=== PATIENT | female | born 1935 | race Caucasian/White ===

== ENCOUNTER 2017-02-22 11:28 | Emergency (ER) | payer MEDICARE, BC ==
--- NOTE | 2017-02-22 12:03 | UC ---
Upper Extremity HPI - HPI Summary HPI Summary: 81 year old female presents with left thumb pain with no trauma. - History of Current Complaint Stated Complaint: LEFT HAND COMPLAINT Time Seen by Provider: 02/22/17 12:02 Hx Obtained From: Patient Hx Last Menstrual Period: n/a Onset/Duration: Sudden Onset Severity Initially: Moderate Severity Currently: Moderate Pain Scale Used: 0-10 Numeric - 5 - Allergies/Home Medications Allergies/Adverse Reactions: Allergies Allergy/AdvReac Type Severity Reaction Status Date / Time Diphenhydramine Allergy Hives Verified 10/28/15 13:47 [From Benadryl] Sulfa Antibiotics Allergy Hives Verified 10/28/15 13:47 Tetracycline Allergy Unknown Verified 10/28/15 13:47 Reaction Details Home Medications: Home Medications Solifenacin(NF) [Vesicare(NF)] 5 mg PO DAILY 02/22/17 [History Confirmed ] PMH/Surg Hx/FS Hx/Imm Hx Previously Healthy: Yes - Surgical History Surgical History: Yes Surgery Procedure, Year, and Place: tonsils 1939 - Family History Known Family History: Positive: Other - denies [facility] of knee pain or joint disorders - Social History Alcohol Use: None Substance Use Type: None Smoking Status (MU): Former Smoker When Did the Patient Quit Smoking/Using Tobacco: 58 years ago Review of Systems Constitutional: Negative Skin: Negative Eyes: Negative ENT: Negative Respiratory: Negative Cardiovascular: Negative Gastrointestinal: Negative Genitourinary: Negative Motor: Negative Neurovascular: Negative Musculoskeletal: Negative Neurological: Negative Psychological: Negative All Other Systems Reviewed And Are Negative: Yes Physical Exam Triage Information Reviewed: Yes Vital Signs Reviewed: Yes Eye Exam: Normal ENT Exam: Normal Dental Exam: Normal Neck exam: Normal Neck: Positive: 1 Respiratory Exam: Normal Cardiovascular Exam: Normal Abdominal Exam: Normal Musculoskeletal: Positive: Other: - right thumb pain Neurological Exam: Normal Psychological Exam: Normal Skin Exam: Normal Upper Extremity Course/Dx - Differential Dx/Diagnosis Provider Diagnoses: right thumb pain. rheumatoid arthritis Discharge - Discharge Plan Condition: Stable Disposition: HOME Prescriptions: Methylprednisolone [Medrol Dosepak 4 MG*] 4 mg PO .SEE JERE [employer]STRUCTION #21 tab Patient Education Materials: Rheumatoid Arthritis (ED), Hand Sprain (ED) Referrals: Harpreet Doshi MD [Medical Doctor] - Tao Mckay MD [Primary Care Provider] - Additional Instructions: LIGAMENT TEAR SCAPHOID/LUNATE
[2017-02-22 12:08] VITALS: BP 145/78
--- NOTE | 2017-02-22 12:45 | RAD ---
INDICATION: LEFT hand pain. COMPARISON: No relevant prior exams available on the [facility] for comparison. TECHNIQUE: AP, lateral, and oblique views LEFT hand. REPORT: Bone density appears decreased throughout. Negative for fracture. Osteophytosis, severe joint space narrowing, and mild radial subluxation at the third distal interphalangeal joint. Mild osteophytosis, flattening of the articular surfaces, and joint space narrowing at the basal joint of the thumb. Associated radial subluxation of the base of the first metacarpal relative to the trapezium. Scapholunate interval diastases most consistent with tear of the scapholunate ligament. Mild soft tissue swelling at the second and third fingers. IMPRESSION: 1. 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 2. 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
== END 2017-02-22 13:03 | disposition home or self-care (01) ==
LOC: UCCORT 11:28
DX: M25.541 Pain in joints of right hand (principal); M06.9 Rheumatoid arthritis, unspecified
CPT/HCPCS: 99213; G0463

== ENCOUNTER 2017-05-18 16:12 | Emergency (ER) | payer MEDICARE, BC ==
--- NOTE | 2017-05-18 16:21 | UC ---
FLU HPI - HPI Summary HPI Summary: Patient currently has nasal congestion-she has had no fevers and she did get a flu vaccine this year---her has the flu she is going to be tested for flu and then be treated with the correct regime of tamiflu - History of Current Complaint Chief Complaint: UCRespiratory Stated Complaint: Exposed to Influenza Time Seen by Provider: 05/18/17 16:15 Hx Obtained From: Patient Hx Last Menstrual Period: n/a ?: No Severity Currently: Mild Severity Initially: Mild Associated Signs & Symptoms: Positive: Nasal Congestion Related Hx: Possible Flu/Infectious Exposure - Allergy/Home Medications Allergies/Adverse Reactions: Allergies Allergy/AdvReac Type Severity Reaction Status Date / Time diphenhydramine Allergy Intermediate Hives Verified 05/18/17 16:29 [From Benadryl] Sulfa (Sulfonamide Allergy Intermediate Hives Verified 05/18/17 16:29 Antibiotics) Tetracyclines Allergy Unknown pt unsure Verified 05/18/17 16:29 of reaction PMH/Surg Hx/FS Hx/Imm Hx Previously Healthy: No Endocrine History: Hypothyroidism, Dyslipidemia Cardiovascular History: Hypertension GI/ History: Gastroesophageal Reflux - Surgical History Surgical History: Yes Surgery Procedure, Year, and Place: tonsils 1940 - Family History Known Family History: Positive: Other - denies [facility] of knee pain or joint disorders - Social History Occupation: Retired Lives: With Family Alcohol Use: None Substance Use Type: None Smoking Status (MU): Former Smoker When Did the Patient Quit Smoking/Using Tobacco: 58 years ago - Immunization History Most Recent Influenza Vaccination: [id number] Review of Systems Constitutional: Negative Skin: Negative Eyes: Negative ENT: Nasal Discharge Respiratory: Negative Cardiovascular: Negative Gastrointestinal: Negative Genitourinary: Negative Motor: Negative Neurovascular: Negative Musculoskeletal: Negative Neurological: Negative Psychological: Negative Is Patient Immunocompromised?: No All Other Systems Reviewed And Are Negative: Yes Physical Exam Triage Information Reviewed: Yes Appearance: Well-Appearing, No Pain Distress, Well-Nourished Vital Signs Reviewed: Yes Eye Exam: Normal Eyes: Positive: Conjunctiva Clear ENT Exam: Normal ENT: Positive: Normal ENT inspection, Hearing grossly normal, Nasal congestion, Nasal drainage. Negative: Tonsillar swelling, Tonsillar exudate, Trismus, Muffled voice, Hoarse voice, Sinus tenderness Dental Exam: Normal Neck exam: Normal Neck: Positive: Supple, Nontender, No Lymphadenopathy Respiratory Exam: Normal Respiratory: Positive: Chest non-tender, No respiratory distress, No accessory muscle use Cardiovascular Exam: Normal Cardiovascular: Positive: RRR, Pulses Normal, Brisk Capillary Refill Musculoskeletal Exam: Normal Musculoskeletal: Positive: Strength Intact, ROM Intact, No Edema Neurological Exam: Normal Neurological: Positive: Alert, Muscle Tone Normal Psychological Exam: Normal Skin Exam: Normal Diagnostics - Laboratory Diagnostic Studies Completed/Ordered: INfluenza A/B (-) Flu Course/Dx - Course Course Of Treatment: Tamiflu po qd for 10 days follow hypertension with PCP recheck for any changes or concerns - Differential Dx/Diagnosis Provider Diagnoses: Influenza Exposure, Influenza Exposure Prophalaxis, hypertension in poor control Discharge - Discharge Plan Condition: Stable Disposition: HOME Prescriptions: Oseltamivir CAP* [Tamiflu CAP*] 75 mg PO DAILY #10 cap Patient Education Materials: Oseltamivir (By mouth), Hypertension (ED) Referrals: Tao Mckay MD [Primary Care Provider] - 1 Week
[2017-05-18 16:26] VITALS: BP 140/67
== END 2017-05-18 16:48 | disposition home or self-care (01) ==
LOC: UCCORT 16:12
DX: Z20.828 Contact with and (suspected) exposure to other viral communicable diseases (principal); I10 Essential (primary) hypertension; Z87.891 Personal history of nicotine dependence
CPT/HCPCS: 87502; 99212; G0463